=== PATIENT | female | born 1955 | race Two or more races ===

== ENCOUNTER 2024-01-05 07:03 | Emergency (ER) | payer MEDICARE, OTHER ==
[~2024-01-05] VITALS: Ht 162.6 cm; Wt 61.8 kg
[2024-01-05 07:08] VITALS: TEMP 98
[2024-01-05 07:23] LABS: COVID AG,FIA SOURCE NASAL SWAB
[2024-01-05 07:41] LABS: RAPID GROUP A STREP NEGATIVE (NEGATIVE)
[2024-01-05 07:45] LABS: INFLUENZA TYPE A NEGATIVE FOR TYPE A (NEGATIVE); INFLUENZA TYPE B NEGATIVE FOR TYPE B (NEGATIVE); SARS-COV2 (COVID) ANTIGEN,FIA Negative (Negative)
[2024-01-05] MEDS: FUROSEMIDE 20 MG TABLET PO ONE (09:13)
[2024-01-05 09:25] LABS: EOSINOPHILS % (AUTO) 3.4 % (1.0-6.0); HEMATOCRIT 24.3 % (36-46); LYMPHOCYTES # (AUTO) 1.8 K/uL (1.0-4.8); LYMPHOCYTES % (AUTO) 37.9 % (22.0-44.0); MEAN CORPUSCULAR HEMOGLOBIN 16.5 pg (26.0-34.0); MEAN CORPUSCULAR HGB CONC 27.9 G/dL (31.0-37.0); MEAN CORPUSCULAR VOLUME 59 fL (80-100); MONOCYTES # (AUTO) 0.4 K/uL (0.1-1.0); MONOCYTES % (AUTO) 7.7 % (2.0-9.0); NEUTROPHILS # (AUTO) 2.4 K/uL (1.8-7.7); PLATELET COUNT (AUTO) 608 K/uL (150-450); RED BLOOD CELL COUNT(AUTO) 4.09 MIL/uL (4.00-5.20); RED CELL DISTRIBUTION WIDTH 23.4 % (11.5-14.5); WHITE BLOOD COUNT (AUTO) 4.7 K/uL (4.5-11.0)
[2024-01-05 09:40] LABS: HEMOGLOBIN 6.8 g/dL (12.0-16.0); TROPONIN I-HIGH SENSITIVITY 6 ng/L (<51)
[2024-01-05 09:44] LABS: ANION GAP 10 mmol/L (8-16); CARBON DIOXIDE 25 mmol/L (22-29); CHLORIDE 104 mmol/L (98-107); CREATININE 0.72 mg/dL (0.60-1.30); GLOMERULAR FILTR. RATE CALC > 60 mL/min (>60); GLUCOSE,RANDOM 90 mg/dL (70-110); POTASSIUM 3.9 mmol/L (3.5-5.1); SODIUM SERUM 139 mmol/L (136-145); UREA NITROGEN, BLOOD 12 mg/dL (7-18)
[2024-01-05 09:47] LABS: ALANINE AMINOTRANSFERASE 15 U/L (12-78); ALBUMIN 3.2 g/dL (3.4-5.0); ALKALINE PHOSPHATASE 91 U/L (46-116); ASPARTATE AMINOTRANSFERASE 17 U/L (15-37); BILIRUBIN,TOTAL 0.4 mg/dL (0.1-1.0); TOTAL PROTEIN, SERUM 6.9 g/dL (6.4-8.2)
[2024-01-05] MEDS ORDERED: FERR325T27 PO (10:06)
[2024-01-05] MEDS ORDERED: HYDR25TA2 PO (10:06)
[2024-01-05] MEDS ORDERED: POLY119P3 PO (10:06)
[2024-01-05 10:07] VITALS: BP 134/67; PULSE 75; RESP 18
[2024-01-05 10:08] LABS: % IRON SATURATION 2.5 % (22-44)
[2024-01-05 10:28] LABS: RBC MORPHOLOGY COMMENT ABNORMAL RBC MORPH
== END 2024-01-05 10:25 | disposition left against medical advice (07) ==
LOC: EMS 07:05
DX: D50.9 Iron deficiency anemia, unspecified (principal); R60.1 Generalized edema; M19.90 Unspecified osteoarthritis, unspecified site; F17.210 Nicotine dependence, cigarettes, uncomplicated; Z90.49 Acquired absence of other specified parts of digestive tract; Z20.822 Contact with and (suspected) exposure to COVID-19
CPT/HCPCS: 80053; 83540; 83550; 84484; 85025; 85379; 87430; 87804; 93005; 99284

== ENCOUNTER 2024-01-20 11:59 | Emergency (ER) | payer MEDICARE, OTHER ==
[~2024-01-20] VITALS: Ht 165.1 cm; Wt 66.4 kg
[~2024-01-20 11:59] MED LIST: FERR325T27 PO; HYDR25TA2 PO; POLY119P3 PO
[2024-01-20 12:07] VITALS: BP 136/91; PULSE 81; RESP 16; TEMP 97.7
[2024-01-20 12:26] LABS: COVID AG,FIA SOURCE NASAL SWAB
[2024-01-20 12:31] LABS: APPEARANCE,URINE CLEAR (CLEAR); BILIRUBIN,URINE NEGATIVE (NEGATIVE); COLOR,URINE LIGHT YELLOW (YELLOW); GLUCOSE, URINE (UA) NEGATIVE (NEGATIVE); KETONES,URINE NEGATIVE (NEGATIVE); LEUKOCYTE ESTERASE ,URINE SMALL (NEGATIVE); NITRATE,URINE NEGATIVE (NEGATIVE); OCCULT BLOOD,URINE TRACE (NEGATIVE); PROTEIN,URINE NEGATIVE (NEGATIVE); UROBILINOGEN,URINE <=1.0 mg/dL (<=1.0)
[2024-01-20 12:33] LABS: BASOPHILS % (AUTO) 1.7 % (0.0-2.0); HEMATOCRIT 35.7 % (36-46); HEMOGLOBIN 10.5 g/dL (12.0-16.0); LYMPHOCYTES # (AUTO) 1.7 K/uL (1.0-4.8); LYMPHOCYTES % (AUTO) 21.4 % (22.0-44.0); MEAN CORPUSCULAR HEMOGLOBIN 19.1 pg (26.0-34.0); MEAN CORPUSCULAR HGB CONC 29.4 G/dL (31.0-37.0); MEAN CORPUSCULAR VOLUME 65 fL (80-100); MONOCYTES # (AUTO) 0.4 K/uL (0.1-1.0); NEUTROPHILS # (AUTO) 5.1 K/uL (1.8-7.7); NEUTROPHILS % (AUTO) 65.9 % (40.0-70.0); PLATELET COUNT (AUTO) 484 K/uL (150-450); RED CELL DISTRIBUTION WIDTH 30.9 % (11.5-14.5); WHITE BLOOD COUNT (AUTO) 7.8 K/uL (4.5-11.0)
[2024-01-20 12:43] LABS: ANION GAP 9 mmol/L (8-16); CALCIUM, TOTAL 9.4 mg/dL (8.8-10.5); CARBON DIOXIDE 26 mmol/L (22-29); CHLORIDE 101 mmol/L (98-107); CREATININE 0.74 mg/dL (0.60-1.30); GLOMERULAR FILTR. RATE CALC > 60 mL/min (>60); GLUCOSE,RANDOM 118 mg/dL (70-110); POTASSIUM 4.4 mmol/L (3.5-5.1); SODIUM SERUM 136 mmol/L (136-145); UREA NITROGEN, BLOOD 16 mg/dL (7-18)
[2024-01-20 12:49] LABS: ALANINE AMINOTRANSFERASE 22 U/L (12-78); ALBUMIN 3.2 g/dL (3.4-5.0); ALKALINE PHOSPHATASE 102 U/L (46-116); ASPARTATE AMINOTRANSFERASE 16 U/L (15-37); BILIRUBIN,TOTAL 0.3 mg/dL (0.1-1.0); TOTAL PROTEIN, SERUM 7.3 g/dL (6.4-8.2)
[2024-01-20 12:50] LABS: SARS-COV2 (COVID) ANTIGEN,FIA Negative (Negative)
[2024-01-20 12:52] LABS: INFLUENZA TYPE A NEGATIVE FOR TYPE A (NEGATIVE); INFLUENZA TYPE B NEGATIVE FOR TYPE B (NEGATIVE)
[2024-01-20 12:58] LABS: BACTERIA,URINE None Seen /HPF (None Seen); RBC,URINE 0-2 /HPF (0-2); SQUAMOUS EPITHELIAL CELL,UR Few /LPF (None Seen)
[2024-01-20 13:26] LABS: RBC MORPHOLOGY COMMENT ABNORMAL RBC MORPH
== END 2024-01-20 14:48 | disposition home or self-care (01) ==
LOC: EMS 12:14
DX: D64.9 Anemia, unspecified (principal); M19.90 Unspecified osteoarthritis, unspecified site; F17.210 Nicotine dependence, cigarettes, uncomplicated; Z90.49 Acquired absence of other specified parts of digestive tract; Z20.822 Contact with and (suspected) exposure to COVID-19
CPT/HCPCS: 80053; 81001; 85025; 87804; 93005; 99284